=== PATIENT | female | born 1995 | race Caucasian/White ===

== ENCOUNTER 2022-01-17 02:20 | Inpatient (IN) | payer BC ==
[2022-01-17] MEDS ORDERED: Calcium Carbonate 500 MG Tab.Chew PO PRN (19:26)
[2022-01-17] MEDS ORDERED: Sodium Chloride 0.9% 10 ML Syringe FLUSH PRN (19:26)
[2022-01-17] MEDS ORDERED: Nalbuphine HCl 10 MG/ 1ML Amp IVPUSH PRN (19:26)
[2022-01-17] MEDS ORDERED: Ondansetron 4 MG/2 ML SDV IVPUSH PRN (19:26)
[2022-01-17] MEDS ORDERED: Oxytocin/Lactated Ringers 10 UNIT/1,000 ML BAG IV SCH ×2 (19:30)
[2022-01-17] MEDS ORDERED: Sodium Chloride 0.9% 10 ML Syringe FLUSH SCH (21:00)
[2022-01-17] MEDS: Lactated Ringers 1,000 ML IV SCH ×2 (21:33→23:25)
[2022-01-17] MEDS ORDERED: fentaNYL 100 MCG/2 ML SDV EPIDUR PRN (23:09)
[2022-01-17] MEDS ORDERED: diphenhydrAMINE 50 MG/ML SDV IVPUSH PRN (23:09)
[2022-01-17] MEDS ORDERED: ePHEDrine 50 MG/ML SDV IVPUSH PRN (23:09)
[2022-01-17] MEDS ORDERED: Bupivacaine/fentaNYL/NS 100 ML Bag EPIDUR PRN (23:09)
[2022-01-18] MEDS ORDERED: Bupivacaine 0.25% 10 ML SDV ONE
[2022-01-18] MEDS: Lactated Ringers 1,000 ML IV SCH (01:38)
[2022-01-18] MEDS ORDERED: Docusate Sodium 100 MG Cap PO PRN (02:43)
[2022-01-18] MEDS ORDERED: Witch Hazel Medicated Pads 40/Jar TOP PRN (02:43)
[2022-01-18] MEDS ORDERED: Benzocaine/Menthol 20%-0.5% Spray 78 GM Cannister TOP PRN (02:43)
[2022-01-18] MEDS: Ibuprofen 600 MG Tab PO PRN ×3 (02:52→18:42)
[2022-01-18] MEDS ORDERED: diphenhydrAMINE 50 MG/ML SDV ONE (03:51)
[2022-01-18] MEDS: Prenatal Multivitamin with Calcium/Folic Acid/Iron Tab PO SCH (09:40)
[2022-01-18] MEDS: Acetaminophen 325 MG Tab PO PRN (15:25)
[2022-01-19] MEDS: Acetaminophen 325 MG Tab PO PRN (00:42)
[2022-01-19] MEDS: Ibuprofen 600 MG Tab PO PRN (00:42)
[2022-01-19] MEDS ORDERED: Measles, Mumps & Rubella Vaccine 0.5 ML SDV SUBCUT ONE (10:01)
[2022-01-19] MEDS: Prenatal Multivitamin with Calcium/Folic Acid/Iron Tab PO SCH (10:05)
== END 2022-01-19 10:30 | disposition home or self-care (01) | DRG 560 ==
LOC: JD.OB 02:20 → OBSVTOIN 01-18 02:20 → JD.OB 01-18 02:21
PROVIDERS: ADMIT Obstetrics & Gynecology; ATTEND Obstetrics & Gynecology
PROC: 10907ZC Drainage of Amniotic Fluid, Therapeutic from Products of Conception, Via Natural or Artificial Opening (ICD-10-PCS; principal; 2022-01-18)
PROC: 10E0XZZ Delivery of Products of Conception, External Approach (ICD-10-PCS; 2022-01-18)
PROC: 3E0R3BZ Introduction of Anesthetic Agent into Spinal Canal, Percutaneous Approach (ICD-10-PCS; 2022-01-18)
DX: O80 Encounter for full-term uncomplicated delivery (principal); Z3A.39 39 weeks gestation of pregnancy; Z37.0 Single live birth; Z79.82 Long term (current) use of aspirin
CPT/HCPCS: 36415; 51702; 59025; 59409; 85025; 86592; 90471; 90707; A9270-GY; J1200; J2590; J3010; J3490; J7120

== ENCOUNTER 2023-01-13 20:34 | Emergency (ER) | payer OTHER ==
[2023-01-13] MEDS ORDERED: Lactated Ringers 500 ML IV ONE (21:49)
[2023-01-13 22:11] LABS: BASOPHILS ABSOLUTE AUTO 0.01 K/mm3 (0.01-0.08); BASOPHILS PERCENT AUTO 0.1 % (0.1-1.2); EOSINOPHILS ABSOLUTE AUTO 0.06 K/mm3 (0.04-0.36); EOSINOPHILS PERCENT AUTO 0.5 (0.7-5.8); HEMATOCRIT 35.9 % (34.1-44.9); IMMATURE GRAN ABSOLUTE AUTO 0.06 K/mm3 (0.00-0.10); IMMATURE GRAN PERCENT AUTO 0.5 % (<=1.0); LYMPHOCYTES ABSOLUTE AUTO 1.92 K/mm3 (1.18-3.74); LYMPHOCYTES PERCENT AUTO 17.1 % (19.3-51.7); MEAN CORPUSCULAR HGB CONC 33.4 g/dl (32.2-35.5); MEAN CORPUSCULAR VOLUME 83.7 fl (79.4-94.8); MONOCYTES ABSOLUTE AUTO 0.75 K/mm3 (0.24-0.36); MONOCYTES PERCENT AUTO 6.7 % (4.7-12.5); NEUTROPHILS ABSOLUTE AUTO 8.41 K/mm3 (1.56-6.13); NEUTROPHILS PERCENT AUTO 75.1 % (34.0-71.1); PLATELET COUNT,PLT 233 K/mm3 (182-369); RED BLOOD CELL COUNT 4.29 M/mm3 (3.98-5.22); WHITE BLOOD CELL COUNT,WBC 11.21 K/mm3 (3.98-10.04)
[2023-01-13 22:12] LABS: APPEARANCE,URINE CLEAR (Clear); BILIRUBIN,URINE NEGATIVE (Negative); COLOR,URINE YELLOW (Yellow); GLUCOSE,URINE NEGATIVE (Negative); KETONES,URINE NEGATIVE (Negative); LEUKOCYTE ESTERASE,URINE NEGATIVE (Negative); NITRITE,URINE NEGATIVE (Negative); OCCULT BLOOD,URINE NEGATIVE (Negative); PH,URINE 6.5 (5.0-8.0); PROTEIN,URINE 1+ (Negative)
[2023-01-13 22:20] LABS: AMORPHOUS SEDIMENT,URINE FEW /hpf (NOT SEEN); BACTERIA,URINE MANY /hpf (FEW); MUCUS,URINE MANY /hpf (FEW); RBC,URINE 0-5 /hpf (0-5)
[2023-01-13 22:33] LABS: A/G RATIO 0.7 (1-2); ALBUMIN 2.9 g/dl (3.4-5.0); ANION GAP 12.6 (5-15); BILIRUBIN TOTAL 0.3 mg/dL (0.2-1.0); BUN/CREATININE RATIO 14.3 (14-18); CREATININE 0.7 mg/dL (0.55-1.02); EST CRCL DRUG DOSING (CG) 86.71 mL/min; POTASSIUM,K 3.6 mEq/L (3.5-5.1); PROTEIN TOTAL,TP 7.1 g/dl (6.4-8.2)
[2023-01-13 22:39] LABS: CALCIUM 8.8 mg/dL (8.5-10.1)
[2023-01-13 22:47] LABS: CORONAVIRUS COVID-19 NAA NEGATIVE (NEGATIVE); INFLUENZA A NAA NEGATIVE (NEGATIVE)
== END 2023-01-13 23:54 | disposition home or self-care (01) ==
LOC: SUPCPDRO 20:34 → JD.ED 20:34
DX: S00.01XA Abrasion of scalp, initial encounter (principal); S60.410A Abrasion of right index finger, initial encounter; E66.9 Obesity, unspecified; Z68.35 Body mass index [BMI] 35.0-35.9, adult; Z20.822 Contact with and (suspected) exposure to COVID-19; W20.8XXA Other cause of strike by thrown, projected or falling object, initial encounter; Y93.01 Activity, walking, marching and hiking; Y92.59 Other trade areas as the place of occurrence of the external cause
CPT/HCPCS: 0240U; 36415; 80053; 81001; 85025; 87086; 96360; 99283; J7120

== ENCOUNTER 2023-03-10 03:14 | Inpatient (IN) | payer OTHER ==
[2023-03-10] MEDS ORDERED: Ondansetron 4 MG/2 ML SDV IVPUSH PRN (03:37)
[2023-03-10] MEDS ORDERED: Nalbuphine 10 MG/0.5 ML Syringe IVPUSH PRN (03:37)
[2023-03-10] MEDS ORDERED: Acetaminophen 325 MG Tab PO PRN (03:37)
[2023-03-10] MEDS ORDERED: Oxytocin/Lactated Ringers 10 UNIT/1,000 ML BAG IV SCH ×2 (03:45)
[2023-03-10 03:55] LABS: BASOPHILS ABSOLUTE AUTO 0.01 K/mm3 (0.01-0.08); BASOPHILS PERCENT AUTO 0.1 % (0.1-1.2); EOSINOPHILS ABSOLUTE AUTO 0.08 K/mm3 (0.04-0.36); EOSINOPHILS PERCENT AUTO 0.7 (0.7-5.8); HEMATOCRIT 35.4 % (34.1-44.9); HEMOGLOBIN 11.9 gm/dl (11.2-15.7); IMMATURE GRAN ABSOLUTE AUTO 0.03 K/mm3 (0.00-0.10); IMMATURE GRAN PERCENT AUTO 0.3 % (<=1.0); LYMPHOCYTES ABSOLUTE AUTO 2.32 K/mm3 (1.18-3.74); LYMPHOCYTES PERCENT AUTO 20.5 % (19.3-51.7); MEAN CORPUSCULAR HEMOGLOBIN 27.9 pg (25.6-32.2); MEAN CORPUSCULAR HGB CONC 33.6 g/dl (32.2-35.5); MEAN CORPUSCULAR VOLUME 83.1 fl (79.4-94.8); MEAN PLATELET VOLUME 10.7 fl (9.4-12.3); MONOCYTES ABSOLUTE AUTO 0.81 K/mm3 (0.24-0.36); MONOCYTES PERCENT AUTO 7.2 % (4.7-12.5); NEUTROPHILS ABSOLUTE AUTO 8.04 K/mm3 (1.56-6.13); NEUTROPHILS PERCENT AUTO 71.2 % (34.0-71.1); PLATELET COUNT,PLT 201 K/mm3 (182-369); RED BLOOD CELL COUNT 4.26 M/mm3 (3.98-5.22); WHITE BLOOD CELL COUNT,WBC 11.29 K/mm3 (3.98-10.04)
[2023-03-10] MEDS: Lactated Ringers 1,000 ML IV SCH ×3 (04:02→05:58)
[2023-03-10] MEDS ORDERED: diphenhydrAMINE 50 MG/ML SDV IVPUSH PRN (04:32)
[2023-03-10] MEDS ORDERED: ePHEDrine 50 MG/ML SDV IVPUSH PRN (04:32)
[2023-03-10] MEDS ORDERED: fentaNYL 100 MCG/2 ML SDV EPIDUR PRN (04:32)
[2023-03-10] MEDS ORDERED: fentaNYL 100 MCG/2 ML SDV ONE (04:32)
[2023-03-10] MEDS ORDERED: Bupivacaine/fentaNYL/NS 100 ML Bag EPIDUR PRN (04:32)
[2023-03-10] MEDS ORDERED: Lidocaine 1% 10 ML MDV ONE (06:00)
[2023-03-10] MEDS ORDERED: Ibuprofen 600 MG Tab PO PRN (08:29)
[2023-03-10] MEDS ORDERED: Benzocaine/Menthol 20%-0.5% Spray 78 GM Cannister TOP PRN (08:29)
[2023-03-10] MEDS ORDERED: Witch Hazel Medicated Pads 40/Jar TOP PRN (08:29)
[2023-03-10] MEDS ORDERED: diphenhydrAMINE 50 MG/ML SDV IVPUSH ONE (08:33)
== END 2023-03-11 09:05 | disposition home or self-care (01) | DRG 807 ==
LOC: JD.OBCHECK 03:14 → JD.OB 03:15 → JD.OBCHECK 05:34 → JD.MS 07:45 → OBSVTOIN 07:47 → JD.OB 12:24
PROVIDERS: ADMIT Family Medicine; ATTEND Family Medicine
PROC: 10E0XZZ Delivery of Products of Conception, External Approach (ICD-10-PCS; principal; 2023-03-10)
PROC: 3E0R3BZ Introduction of Anesthetic Agent into Spinal Canal, Percutaneous Approach (ICD-10-PCS; 2023-03-10)
PROC: 00HU33Z Insertion of Infusion Device into Spinal Canal, Percutaneous Approach (ICD-10-PCS; 2023-03-10)
DX: O42.92 Full-term premature rupture of membranes, unspecified as to length of time between rupture and onset of labor (principal); Z37.0 Single live birth; O99.214 Obesity complicating childbirth; Z3A.38 38 weeks gestation of pregnancy
CPT/HCPCS: 01967; 36415; 51702; 59025; 59409; 84112; 85025; 86592; 86850; 86900; 86901; A9270-GY; J1200; J2590; J3010; J3490; J7120